=== PATIENT | female | born 1950 | race Caucasian/White ===

== ENCOUNTER 2016-09-05 09:30 | Outpatient (RCR) | payer OTHER | END 2016-09-06 | disposition home or self-care (01) | LOC: PTY 09:30 | DX: M54.31 Sciatica, right side (principal); Z88.1 Allergy status to other antibiotic agents; Z88.0 Allergy status to penicillin; Z88.8 Allergy status to other drugs, medicaments and biological substances ==

== ENCOUNTER 2016-09-08 10:00 | Outpatient (RCR) | payer OTHER | END 2016-10-07 | disposition home or self-care (01) | LOC: PTY 10:00 | DX: M54.31 Sciatica, right side (principal); M41.9 Scoliosis, unspecified; Z88.1 Allergy status to other antibiotic agents; Z88.8 Allergy status to other drugs, medicaments and biological substances ==